=== PATIENT | male | born 1995 | race African-American/Black ===

== ENCOUNTER 2024-11-05 11:07 | Day surgery (SDC) | payer OTHER ==
[2024-11-04 15:45] VITALS: BMI 18.3
[2024-11-05 11:48] VITALS: RESP 18
[2024-11-05 13:40] VITALS: TEMP 98
[2024-11-05 13:43] VITALS: BP 115/68; PULSE 71
== END 2024-11-05 13:48 | disposition home or self-care (01) ==
LOC: FASU-ENDO 11:07
PROVIDERS: ATTEND Internal Medicine Gastroenterology
PROC: 0DB78ZX Excision of Stomach, Pylorus, Via Natural or Artificial Opening Endoscopic, Diagnostic (ICD-10-PCS; 2024-11-05)
PROC: 0DB68ZX Excision of Stomach, Via Natural or Artificial Opening Endoscopic, Diagnostic (ICD-10-PCS; 2024-11-05)
PROC: 0DB28ZX Excision of Middle Esophagus, Via Natural or Artificial Opening Endoscopic, Diagnostic (ICD-10-PCS; 2024-11-05)
PROC: 0DB38ZX Excision of Lower Esophagus, Via Natural or Artificial Opening Endoscopic, Diagnostic (ICD-10-PCS; 2024-11-05)
PROC: 0DB98ZX Excision of Duodenum, Via Natural or Artificial Opening Endoscopic, Diagnostic (ICD-10-PCS; principal; 2024-11-05 12:55)
DX: K29.50 Unspecified chronic gastritis without bleeding (principal); K21.00 Gastro-esophageal reflux disease with esophagitis, without bleeding; K31.89 Other diseases of stomach and duodenum
CPT/HCPCS: 88305-TC; 88342-TC